=== PATIENT | male | born 1975 | race Caucasian/White ===

== ENCOUNTER 2023-03-03 09:42 | Outpatient (AMB) | payer BC, SELFPAY ==
--- NOTE | 2023-03-03 10:10 | AM.OFFWIN_ITS ---
Intake Vital Signs 03/03/23 10:15 Height 6 ft Weight 180 lb BMI 24.4 BP 130/76 Blood Pressure Location Rt brachial Position Sitting Pulse 95 Pulse Source Pulse Oximeter Temp 98.3 F Temp Source Temporal Artery Scan Pulse Oximetry (%) 97 Intake Visit Reasons: [employer] Tick bite LT calf (lobby) Intake Note: pt is here for c/o left calf tick bite, removed yesterday Patient Tobacco Use Status: Never used Tobacco Allergies No Known Allergies Allergy (Verified 03/03/23 10:15) Do you need a note to return to daycare/school/sports/work: Yes HPI HPI Comments History of Present Illness Details 47 y M presents for tick bite x two. unc lear how long it has been present. He thinks maybe 24 hours. denies fever, chills, joint pain or swelling PFSH Social History Patient Tobacco Use Status: Never used Tobacco Review of Systems Skin/Breast Reports rash Physical Exam Vital Signs: Last Vital Signs Temp 98.3 F 03/03/23 10:15 Pulse 95 03/03/23 10:15 BP 130/76 03/03/23 10:15 Pulse Ox 97 03/03/23 10:15 BMI result Body Mass Index 24.4 Const General: healthy appearing, comfortable, no acute distress and alert Orientation/consciousness: patient oriented x3 Limitations: no limitations HEENT Head: Yes normal to inspection Ears: hearing grossly normal bilaterally Resp Effort & Inspection: normal respiratory effort and able to speak in complete sentences Cardio Rate: regular rate Skin Other: Small rash on the left calf with central clear. Small scab with red surround on the posterior neck Neuro General: patient oriented x3 Extrem General: Yes normal to inspection Assessment & Plan Assessment & Plan (1) Tick bite: Code(s): W57.XXXA - Bitten or stung by nonvenomous insect and other nonvenomous arthropods, initial encounter Qualifiers: Encounter type: initial encounter Site of tick bite: lower leg Laterality: left Qualified Code(s): S80.862A - Insect bite (nonvenomous), left lower leg, initial encounter; W57.XXXA - Bitten or stung by nonvenomous insect and other nonvenomous arthropods, initial encounter Plan: Low suspicion for lyme in absence of symptoms. will prescribe prophylatic dose of doxy and send patient for lyme testing. Discharge instructions, follow up and treatment are discussed with patient in my usual fashion. Alternatives in treatment are also discussed. The patient will return for worsening symptoms or as needed. Advised that any labs/imaging ordered will be followed up on and contact made if further treatment needed. Counseled that patient's condition may require further evaluation and/or treatment. Symptoms of concern for worsening disorder discussed in detail in my customary manner. Patient does verbalize understanding of the plan, there are no apparent barriers to communication. The patient is given the opportunity to ask questions and have them answered to his/her satisfaction Orders: Orders Lyme IgG/IgM w/reflex to WB Today W57.XXXA - Bitten or stung by nonvenomous insect and other nonvenomous arthropods, initial encounter Medications: New doxycycline hyclate 200 mg (2 x 100 mg) PO DAILY 2 caps 0RF 1 day Coding Level of Care Code Est Pt Level 3 (10650) Diagnoses Tick bite of left lower leg, initial encounter S80.862A; W57.XXXA Encounter type: initial encounter Site of tick bite: lower leg Laterality: left
[2023-03-03 10:15] VITALS: BP 130/76; PULSE 95; TEMP 36.8; O2SAT 97; BMI 24.4
== END 2023-03-03 10:32 | disposition home or self-care (01) ==
PROVIDERS: Visit Provider Physician Assistant
DX: S80.862A Insect bite (nonvenomous), left lower leg, initial encounter (principal); W57.XXXA Bitten or stung by nonvenomous insect and other nonvenomous arthropods, initial encounter
CPT/HCPCS: 99213

== ENCOUNTER 2023-03-03 10:31 | Outpatient (REF) | payer BC, SELFPAY ==
[2023-03-05 03:03] LABS: Lyme Abs Screen <0.90 index
== END 2023-03-03 10:32 | disposition home or self-care (01) ==
LOC: HO.HMGCLDS 10:31
PROVIDERS: Visit Provider Physician Assistant
DX: T14.8XXA Other injury of unspecified body region, initial encounter (principal); W57.XXXA Bitten or stung by nonvenomous insect and other nonvenomous arthropods, initial encounter
CPT/HCPCS: 36415; 86617; 86618